=== PATIENT | female | born 1985 | race Caucasian/White ===

== ENCOUNTER 2023-07-15 07:56 | Outpatient (CLI) | payer OTHER | END 2023-07-15 07:57 | disposition home or self-care (01) | LOC: SONOGRAMA 07:56 | PROVIDERS: ATTEND Pathology Anatomic Pathology & Clinical Pathology | DX: C73 Malignant neoplasm of thyroid gland (principal); D34 Benign neoplasm of thyroid gland; E04.9 Nontoxic goiter, unspecified; E07.9 Disorder of thyroid, unspecified; E04.1 Nontoxic single thyroid nodule; E06.5 Other chronic thyroiditis ==

== ENCOUNTER 2023-12-02 07:15 | Inpatient (IN) | payer OTHER ==
[~2023-12-02] VITALS: Ht 172.7 cm; Wt 112.5 kg
[2023-12-02] MEDS ORDERED: MONTELUKAST SOD10 MG PO (08:09)
[2023-12-02] MEDS ORDERED: METFORMIN HCL1000 M2 PO (08:09)
[2023-12-02] MEDS ORDERED: CLARITIN10 M2 PO (08:10)
[2023-12-02] MEDS ORDERED: BUDESONIDE8.43 ML (08:11)
[2023-12-02 08:54] LABS: HEMATOCRIT 40.4 % (36.0-45.00); HEMOGLOBIN 13.4 g/dL (12.0-15.00); MEAN CELL VOLUME 80.9 fL (80.00-100.00); MEAN CORPUSCULAR HEMOGLOBIN 26.9 pg (27.00-32.0); MEAN CORPUSCULAR HGB CONC 33.3 g/dl (32.0-36.0); PLATELET COUNT 294 K/uL (150-450); RED BLOOD COUNT 4.99 M/uL (4.00-6.00); RED CELL DISTRIBUTION WIDTH 13.4 % (11.5-14.5)
[2023-12-02 08:56] LABS: URINE APPEARANCE Clear; URINE BILIRRUBIN Negative (NEGATIVE); URINE BLOOD Negative; URINE COLOR Yellow; URINE GLUCOSE Negative (NEGATIVE); URINE LEUKOCYTE Negative; URINE NITRATE Negative; URINE PROTEIN Negative (NEGATIVE); URINE UROBILINOGEN 0.2 E.U./dl
[2023-12-02 09:03] LABS: URINE EPITHELIAL CELLS 5.5 uL (0.0-38.8); URINE RBC 4.1 uL (0.0-20.8); URINE WBC 2.4 uL (0.0-23.2)
[2023-12-02 09:21] LABS: INR 0.96; PARTIAL THROMBOPLASTIN TIME 28.5 SECONDS (22.0-34.0); PROTHROMBIN TIME 10.1 SECONDS (9.0-11.5)
[2023-12-02 09:38] LABS: ALBUMIN 3.5 gm/dL (3.4-5.0); BILIRUBIN TOTAL 0.53 mg/dL (0.3-1.2); CALCIUM 9.2 mg/dL (8.5-10.1); CREATININE SERUM 0.74 mg/dL (0.55-1.02); GFR 87.37; GLOBULINA 3.7 G/DL (2.4-3.5); POTASSIUM 4.11 mEq/L (3.5-5.1); TOTAL PROTEIN 7.2 gm/dL (6.4-8.2)
[2023-12-02 09:46] LABS: T4 FREE 1.1 NG/ML (0.76-1.46); TSH 1.66 uIU/mL (0.358-3.74)
[2023-12-09] MEDS ORDERED: DEXAMETHASONE SODIUM PHOSPHATE 4 MG/ML VIAL ONE (07:44)
[2023-12-09] MEDS ORDERED: CEFAZOLIN SODIUM 1,000 MG VIAL ONE ×2 (07:44→13:17)
[2023-12-09] MEDS ORDERED: CEFAZOLIN SODIUM 1,000 MG VIAL IV ONE (09:00)
[2023-12-09] MEDS ORDERED: DEXAMETHASONE SODIUM PHOSPHATE 4 MG/ML VIAL IV ONE (09:00)
[2023-12-09] MEDS ORDERED: CETIRIZINE HCL10 MG (09:54)
[2023-12-09] MEDS ORDERED: RINGERS SOLUTION,LACTATED 1,000 ML IV SCH (11:15)
[2023-12-09] MEDS ORDERED: ONDANSETRON HCL 2 MG/ML VIAL IV PRN (11:15)
[2023-12-09] MEDS ORDERED: ENALAPRILAT DIHYDRATE 1.25 MG/ML VIAL IV PRN (11:15)
[2023-12-09] MEDS ORDERED: DEXTROSE 50 % IN WATER 0.5 G/ML DISP.SYRIN IV PRN (11:30)
[2023-12-09] MEDS ORDERED: INSULIN LISPRO 1,000 UNIT/10 ML UNITS SUBCUTANEO PRN (11:30)
[2023-12-09] MEDS ORDERED: TRAMADOL HCL 50 MG TABLET PO SCH (13:00)
[2023-12-09] MEDS ORDERED: ACETAMINOPHEN 500 MG GEL..CAP PO SCH (13:00)
[2023-12-09] MEDS ORDERED: CEFAZOLIN SODIUM 1,000 MG VIAL IV SCH (13:00)
[2023-12-09] MEDS ORDERED: Calcium Carbonate 1 TAB TABLET PO SCH (21:00)
[2023-12-10] MEDS ORDERED: LEVOTHYROXINE SODIUM 175 MCG TABLET PO SCH ×2 (09:00)
== END 2023-12-10 13:13 | disposition home or self-care (01) | DRG 627 ==
LOC: O/R 12-09 05:45 → SURH 12-09 05:45
PROVIDERS: ADMIT Otolaryngology; ATTEND Otolaryngology
PROC: 0GTK0ZZ Resection of Thyroid Gland, Open Approach (ICD-10-PCS; principal; 2023-12-09 07:00)
DX: C73 Malignant neoplasm of thyroid gland (principal); E04.2 Nontoxic multinodular goiter; Z20.822 Contact with and (suspected) exposure to COVID-19

== ENCOUNTER 2025-04-05 07:50 | Outpatient (CLI) | payer OTHER ==
[~2025-04-05 07:50] MED LIST: BUDESONIDE8.43 ML; CETIRIZINE HCL10 MG; CLARITIN10 M2 PO; METFORMIN HCL1000 M2 PO; MONTELUKAST SOD10 MG PO
== END 2025-04-05 07:52 | disposition home or self-care (01) ==
LOC: SONOGRAMA 07:50
PROVIDERS: ATTEND Pathology Anatomic Pathology & Clinical Pathology
DX: R59.0 Localized enlarged lymph nodes (principal); C73 Malignant neoplasm of thyroid gland